=== PATIENT | male | born 1980 | race Asian ===

== ENCOUNTER → 2020-06-27 17:49 | Outpatient (CLI) | payer OTHER, SELFPAY | PROVIDERS: Visit Provider Physician Assistant | DX: N34.3 Urethral syndrome, unspecified (principal) | CPT/HCPCS: 87077; 87086; 87186 ==

== ENCOUNTER → 2020-07-04 12:26 | Outpatient (CLI) | payer OTHER, SELFPAY ==
--- NOTE | 2020-07-04 12:28 | DI.US.S_ITS ---
PROCEDURE: US SCROTUM INDICATIONS: TESTICLE PAIN X 2 MONTHS. RULE OUT EPIDIDYMITIS TECHNIQUE: Real-time scanning was performed of the scrotum and testicles, with image documentation. Color and pulse Doppler interrogation was performed of both testicles. COMPARISON: None. FINDINGS: Right: Testicle is normal in size at 4.3 x 3.1 x 1.9 cm, and homogenous in echotexture. Epididymis is normal in overall size and morphology. 4 millimeter simple cyst noted in the right epididymal head. No hydrocele or varicoceles. Overlying scrotal skin is normal in thickness. Left: Testicle is normal in size at 4.0 x 3.3 x 2.3 cm, and homogeneous in echotexture. Epididymis is normal in overall size and morphology. 2 millimeter simple cyst noted in the left epididymal head. No hydrocele or varicoceles. Overlying scrotal skin is normal in thickness. Doppler: Color and pulse Doppler demonstrate normal and symmetric arterial flow in both testicles. IMPRESSION: 1. No evidence of testicular torsion. 2. No evidence of epididymitis. 3. Small bilateral epididymal head cysts. Dictated by: Montse Murphy MD, PhD on 07/04/2020 at 14:01 Approved by: Montse Murphy MD, PhD on 07/04/2020 at 14:05
== END ==
PROVIDERS: PCP Student in an Organized Health Care Education/Training Program; Referring Provider Physician Assistant; Visit Provider Physician Assistant
DX: N50.819 Testicular pain, unspecified (principal)
CPT/HCPCS: 76870

== ENCOUNTER → 2020-07-07 16:33 | Outpatient (CLI) | payer OTHER, SELFPAY ==
[2020-07-07 17:49] LABS: Add Manual Diff / Slide Review NO; Basophils Absolute Auto 0 /uL (0-100); Basophils Percent Auto 0.3 % (0-2); Eosinophils Absolute Auto 200 /uL (0-450); Eosinophils Percent Auto 1.9 % (2-4); Hematocrit 43.7 % (41-53); Lymphocytes Absolute Auto 2700 /uL (1100-4500); Lymphocytes Percent Auto 26.2 % (25-40); Mean Corpuscular HGB Conc 34.3 % (30-36); Mean Corpuscular Volume 87.5 fL (80-100); Monocytes Absolute Auto 900 /uL (0-900); Monocytes Percent Auto 9.1 % (3-14); Neutrophils Absolute Auto 6300 /uL (1500-7000); Neutrophils Percent Auto 62.5 % (50-75); Platelet Count 319 X10^3/uL (150-400); Red Cell Distribution Width 12.9 % (11.6-14.8); White Blood Cell Count 10.1 X10^3/uL (4.5-11.0)
[2020-07-07 17:58] LABS: BUN Creatinine Ratio 17.1 (6-22); Blood Urea Nitrogen 13 mg/dL (9-20); Cholesterol 202 mg/dL (140-199); Estimated Glomerular Filt Rate > 60.0 mL/min (>60); HDL Cholesterol 37 mg/dL (40-60); LDL Cholesterol Calculated 115 mg/dL (<100); Triglycerides 250 mg/dL (35-150)
== END ==
PROVIDERS: PCP Student in an Organized Health Care Education/Training Program; Referring Provider Student in an Organized Health Care Education/Training Program; Visit Provider Student in an Organized Health Care Education/Training Program
DX: N20.0 Calculus of kidney (principal); N50.82 Scrotal pain; Z13.220 Encounter for screening for lipoid disorders
CPT/HCPCS: 36415; 80061; 82565; 84520; 85025

== ENCOUNTER → 2020-07-08 08:02 | Outpatient (CLI) | payer OTHER, SELFPAY ==
[2020-07-08] MEDS: COVID-19 VACC #1, MRNA(MOD) 100 MCG/0.5 ML VIAL IM (08:06)
== END ==
PROVIDERS: PCP Student in an Organized Health Care Education/Training Program; Visit Provider Internal Medicine
DX: Z23 Encounter for immunization (principal)
CPT/HCPCS: 0011A; 91301

== ENCOUNTER → 2020-08-06 07:48 | Outpatient (CLI) | payer OTHER, SELFPAY ==
[2020-08-06] MEDS: COVID-19 VACC #2, MRNA(MOD) 100 MCG/0.5 ML VIAL IM (08:01)
== END ==
PROVIDERS: PCP Student in an Organized Health Care Education/Training Program; Visit Provider Internal Medicine
DX: Z23 Encounter for immunization (principal)
CPT/HCPCS: 0012A; 91301

== ENCOUNTER → 2022-04-20 11:27 | Outpatient (CLI) | payer OTHER, SELFPAY ==
[2022-04-20 13:52] LABS: Appearance Urine UA CLEAR; Bilirubin Urine UA NEGATIVE (NEGATIVE); Color Urine UA YELLOW; Glucose Urine UA NEGATIVE (Negative); Ketones Urine UA NEGATIVE (NEGATIVE); Leukocyte Esterase Urine UA TRACE (NEGATIVE); Nitrite Urine UA NEGATIVE (Negative); Occult Blood Urine UA 3+ (Negative); Protein Urine UA NEGATIVE (Negative); Specific Gravity Urine UA <=1.005 (1.000-1.035); Urobilinogen Urine UA 0.2 E.U./dL (0.2); pH Urine UA 6.5 (4.5-8.0)
[2022-04-20 14:04] LABS: Amorphous Sediment Urine 1+; Bacteria Urine None Seen; Culture Indicated Urine Specimen Cultured; RBC Urine 1-5/HPF (0-5/HPF); WBC Urine 0-1/HPF (0-5/HPF)
== END ==
PROVIDERS: PCP Student in an Organized Health Care Education/Training Program; Referring Provider Internal Medicine; Visit Provider Internal Medicine
DX: N50.819 Testicular pain, unspecified (principal); R31.9 Hematuria, unspecified
CPT/HCPCS: 81001; 87086

== ENCOUNTER → 2022-08-04 06:48 | Outpatient (CLI) | payer OTHER, SELFPAY ==
--- NOTE | 2022-08-04 06:49 | DI.CT.S_ITS ---
PROCEDURE: CT ABDOMEN PELVIS WO/W CON INDICATIONS: Gross hematuria TECHNIQUE: Optional 5 mm thick noncontrast images acquired from the diaphragm to the symphysis pubis. After the administration of intravenous contrast, 5 mm thick images acquired from the diaphragm to the symphysis pubis after a 10-minute delay. 2 mm thick coronal and sagittal reformats were then performed of the kidneys and ureters. For radiation dose reduction, the following was used: automated exposure control, adjustment of mA and/or kV according to patient size. COMPARISON: None. FINDINGS: Image quality: Excellent. Lung bases: Lung bases are clear. Heart size is normal. Urinary system: There is a 3.5 mm stone in the distal left ureter (2/72), with minimal upstream hydronephrosis. 2 mm stone in the inferior calyx of the left kidney. No solid filling defect within the opacified renal collecting system. Bladder is incompletely distended with contrast. Other solid organs: Liver is normal in size and enhancement. Hepatic steatosis. Gallbladder is unremarkable . Biliary system is non dilated. Pancreas enhances normally. Spleen is normal in size and enhancement. No adrenal nodules. Peritoneum and bowel: Bowel loops demonstrate normal wall thickness and caliber. No free fluid or air. Nodes and vessels: No retroperitoneal or mesenteric adenopathy by size criteria. Aorta and inferior vena cava are normal in size. Abdominal wall: No ventral hernias. Pelvis: No pathologic free pelvic fluid. No inguinal hernias or adenopathy. Bones: No suspicious bony lesions. No vertebral body compression fractures. IMPRESSION: Obstructing 3.5 mm stone in the distal left ureter, resulting in minimal upstream hydronephrosis. Additional 2 mm stone in the inferior calyx of the left kidney. No solid filling defects within the opacified renal collecting system. Dictated by: John Gomez M.D. on 08/04/2022 at 8:28 Approved by: John Gomez M.D. on 08/04/2022 at 8:33
== END ==
PROVIDERS: PCP Student in an Organized Health Care Education/Training Program; Referring Provider Urology; Visit Provider Urology
DX: N20.2 Calculus of kidney with calculus of ureter (principal); R31.0 Gross hematuria; Z87.442 Personal history of urinary calculi; N50.811 Right testicular pain; N50.812 Left testicular pain
CPT/HCPCS: 74178; Q9967

== ENCOUNTER → 2022-08-13 08:13 | Outpatient (CLI) | payer OTHER, SELFPAY ==
--- NOTE | 2022-08-13 08:15 | DI.RAD.S_ITS ---
PROCEDURE: XR KUB INDICATIONS: Kidney stone TECHNIQUE: One view of the abdomen acquired. COMPARISON: [facility], CT, CT ABDOMEN PELVIS WO/W CON, 08/04/2022, 7:00. FINDINGS: Surgical changes and devices: None. Bowel: Bowel gas pattern is normal. Soft tissues: Several left hemipelvic calcifications are seen. No suspicious abdominal calcifications. Visualized solid organ contours appear normal in size. Bones: No suspicious bony lesions. IMPRESSION: Several left small hemipelvic calcifications are present, with the 2 smaller superior calcifications which 1 of which could represent the 3 mm distal left ureteral stone seen on prior CT. Recommend clinical correlation. Dictated by: Collins GIANG Interpreted: Yvonne Marroquin MD on 08/13/2022 at 9:52 Transcribed by: CHUCKY on 08/13/2022 at 9:55 Approved by: Yvonne Marroquin M.D. on 08/13/2022 at 16:16
== END ==
PROVIDERS: PCP Student in an Organized Health Care Education/Training Program; Referring Provider Urology; Visit Provider Urology
DX: N20.0 Calculus of kidney (principal)
CPT/HCPCS: 74018

== ENCOUNTER → 2022-09-15 08:43 | Outpatient (CLI) | payer OTHER, SELFPAY ==
--- NOTE | 2022-09-15 08:45 | DI.RAD.S_ITS ---
PROCEDURE: XR KUB INDICATIONS: Left ureteral calculus TECHNIQUE: One view of the abdomen acquired. COMPARISON: [facility], CR, XR KUB, 08/13/2022, 8:39. [facility], CT, CT ABDOMEN PELVIS WO/W CON, 08/04/2022, 7:00. FINDINGS: Nonobstructive bowel gas pattern. Several small calcifications project over the left pelvis as before. number of calcifications appear decreased compared to before, could represent resolution of the previously demonstrated ureteral stone. IMPRESSION: Several small calcifications project over the left pelvis as before. Number of calcifications appear decreased compared to before, could represent passage of the previously demonstrated ureteral stone however clinical correlation is recommended. Dictated by: Srinivas Roland M.D. on 09/15/2022 at 16:00 Approved by: Srinivas Roland M.D. on 09/15/2022 at 16:02
== END ==
PROVIDERS: PCP Student in an Organized Health Care Education/Training Program; Referring Provider Urology; Visit Provider Urology
DX: N20.1 Calculus of ureter (principal)
CPT/HCPCS: 74018

== ENCOUNTER → 2022-09-22 07:49 | Outpatient (CLI) | payer OTHER, SELFPAY ==
--- NOTE | 2022-09-22 07:51 | DI.RAD.S_ITS ---
PROCEDURE: XR KUB INDICATIONS: history of kidney stones TECHNIQUE: One view of the abdomen acquired. COMPARISON: [facility], CT, CT ABDOMEN PELVIS WO/W CON, 08/04/2022, 7:00. [facility], CR, XR KUB, 09/15/2022, 8:52. [facility], CR, XR KUB, 08/13/2022, 8:39. FINDINGS: Surgical changes and devices: None. Bowel: Bowel gas pattern is normal. Soft tissues: Calcifications in the left pelvis appears similar. No suspicious abdominal calcifications. Visualized solid organ contours appear normal in size. Bones: No suspicious bony lesions. IMPRESSION: Calcifications in the left pelvis appear similar. The previously seen distal left ureter stone is difficult to confirm. These could represent phleboliths. Recommend clinical correlation. Consider CT KUB for further evaluation. Dictated by: Cory Sabillon M.D. on 09/22/2022 at 10:24 Approved by: Cory Sabillon M.D. on 09/22/2022 at 10:28
== END ==
PROVIDERS: PCP Pediatrics; Referring Provider Urology; Visit Provider Urology
DX: N20.0 Calculus of kidney (principal)
CPT/HCPCS: 74018

== ENCOUNTER → 2022-12-29 17:03 | Outpatient (CLI) | payer OTHER, SELFPAY ==
[2022-12-29 18:04] LABS: Alanine Aminotransferase 41 IU/L (<50); Albumin 4.5 g/dL (3.5-5.0); Albumin Globulin Ratio 1.4 (1.0-2.8); Alkaline Phosphatase 79 U/L (38-126); Aspartate Aminotransferase 28 IU/L (17-59); BUN Creatinine Ratio 14.8 (6-22); Bilirubin Total 0.5 mg/dL (0.2-1.3); Blood Urea Nitrogen 12 mg/dL (9-20); Calcium 9.1 mg/dL (8.4-10.2); Carbon Dioxide 23 mmol/L (22-32); Chloride 104 mmol/L (98-107); Cholesterol 218 mg/dL (140-199); Estimated Glomerular Filt Rate > 60 mL/min (>60); Globulin 3.3 g/dL (1.7-4.1); Glucose 87 mg/dL (70-100); HDL Cholesterol 37 mg/dL (40-60); HEMOLYSIS < 15 (0-50); LDL Cholesterol Calculated 128 mg/dL (<100); Potassium 4.2 mmol/L (3.4-5.1); Sodium 138 mmol/L (137-145); Total Protein 7.8 g/dL (6.3-8.2); Triglycerides 266 mg/dL (35-150)
== END ==
PROVIDERS: PCP Family Medicine; Referring Provider Family Medicine; Visit Provider Family Medicine
DX: E78.2 Mixed hyperlipidemia (principal)
CPT/HCPCS: 36415; 80053; 80061

== ENCOUNTER → 2024-07-28 09:22 | Outpatient (CLI) | payer OTHER, SELFPAY ==
[2024-07-28 10:36] LABS: Alanine Aminotransferase 30 IU/L (<50); Albumin 4.2 g/dL (3.5-5.0); Albumin Globulin Ratio 1.8 (1.0-2.8); Alkaline Phosphatase 77 U/L (38-126); Aspartate Aminotransferase 24 IU/L (17-59); BUN Creatinine Ratio 14.9 (6-22); Bilirubin Total 0.5 mg/dL (0.2-1.3); Blood Urea Nitrogen 13 mg/dL (9-20); Calcium 9.3 mg/dL (8.4-10.2); Carbon Dioxide 28 mmol/L (22-32); Chloride 103 mmol/L (98-107); Cholesterol 209 mg/dL (140-199); Estimated Glomerular Filt Rate > 60 mL/min (>60); Globulin 2.4 g/dL (1.7-4.1); Glucose 105 mg/dL (70-100); HDL Cholesterol 36 mg/dL (40-60); HEMOLYSIS < 15 (0-50); LDL Cholesterol Calculated 126 mg/dL (<100); Potassium 4.7 mmol/L (3.4-5.1); Sodium 138 mmol/L (137-145); Total Protein 6.6 g/dL (6.3-8.2); Triglycerides 234 mg/dL (35-150)
[2024-07-28 16:38] LABS: HIV 1 & 2 Ab/Ag 4th Gen Combo NEGATIVE (NEGATIVE); Hep C Virus Ab w/Reflex Quant NEGATIVE s/c (NEGATIVE)
== END ==
LOC: LAB 09:24
PROVIDERS: PCP Family Medicine; Referring Provider Family Medicine; Visit Provider Family Medicine
DX: Z00.00 Encounter for general adult medical examination without abnormal findings (principal); E78.2 Mixed hyperlipidemia; N20.0 Calculus of kidney; Z11.59 Encounter for screening for other viral diseases; Z11.4 Encounter for screening for human immunodeficiency virus [HIV]
CPT/HCPCS: 36415; 80053; 80061; 86803; 87389